=== PATIENT | male | born 1985 | race Caucasian/White ===

== ENCOUNTER 2017-03-03 03:35 | Emergency (ER) | payer SELFPAY ==
--- NOTE | 2017-03-03 05:08 | ED PDOC ---
HPI: General Adult Time Seen by Provider: 03/03/17 04:00 Chief Complaint (Nursing): Lower Extremity Problem/Injury History Per: Patient Additional Complaint(s): As per patient he drank 6 beers today and wanted a place to sleep. Pt. states he initially went to [facility] ED but he felt "offended" therefore he left and came here. Pt. offers no complaints and is requesting to leave later on in the morning. Denies leg pain contrary to triage note. Past Medical History Reviewed: Historical Data, Nursing Documentation, Vital Signs Vital Signs: Last Vital Signs Temp 97.6 F 03/03/17 03:46 Pulse 75 03/03/17 03:46 Resp 17 03/03/17 03:46 BP 111/60 03/03/17 03:46 Pulse Ox 96 03/03/17 03:46 - Family History Family History: States: No Known Family Hx - Immunization History Hx Tetanus Toxoid Vaccination: (UNKNOWN) Hx Influenza Vaccination: No Hx Pneumococcal Vaccination: No - Home Medications Home Medications: Ambulatory Orders Medication Instructions Recorded Naproxen [Naprosyn] 375 mg PO BID PRN #15 tab 02/27/15 traMADol [Ultram] 50 mg PO BID PRN #12 tab 02/27/15 Bacitracin OINT 1 applic TP BID #45 g 09/24/15 Cephalexin [Keflex] 500 mg PO Q6 #28 cap 09/24/15 - Allergies Allergies/Adverse Reactions: Allergies Allergy/AdvReac Type Severity Reaction Status Date / Time No Known Allergies Allergy Verified 09/22/13 11:52 Review of Systems ROS Statement: Except As Marked, All Systems Reviewed And Found Negative Physical Exam - Reviewed Nursing Documentation Reviewed: Yes Vital Signs Reviewed: Yes - Physical Exam Appears: Positive for: Well, Non-toxic, No Acute Distress Head Exam: Positive for: ATRAUMATIC, NORMAL INSPECTION, NORMOCEPHALIC Skin: Positive for: Normal Color, Warm. Negative for: Rash Eye Exam: Positive for: EOMI, Normal appearance, PERRL ENT: Positive for: Normal ENT Inspection Neck: Positive for: Normal, Painless ROM Cardiovascular/Chest: Positive for: Regular Rate, Rhythm Respiratory: Positive for: CNT, Normal Breath Sounds Gastrointestinal/Abdominal: Positive for: Normal Exam, Bowel Sounds, Soft. Negative for: Tenderness Back: Positive for: Normal Inspection Extremity: Positive for: Normal ROM Neurologic/Psych: Positive for: Alert, Oriented, Gait (steady, unassisted), Other (AOB; no slurred speech). Negative for: Aphasia, Facial Droop - ECG O2 Sat by Pulse Oximetry: 96 Disposition - Clinical Impression Clinical Impression: Alcohol intoxication - Patient ED Disposition Is Patient to be Admitted: No - Disposition Disposition: Routine/Home Disposition Time: 05:10 Condition: STABLE Instructions: Alcohol Intoxication (ED) Forms: [employer] ([place])
[2017-03-03 05:44] VITALS: BP 115/68; PULSE 80; RESP 18; TEMP 97.8; O2SAT 100
== END 2017-03-03 05:55 | disposition home or self-care (01) ==
LOC: H.ER 03:35
DX: F10.129 Alcohol abuse with intoxication, unspecified (principal); Y90.9 Presence of alcohol in blood, level not specified

== ENCOUNTER 2018-02-09 05:17 | Emergency (ER) | payer SELFPAY ==
[2018-02-09 05:36] VITALS: RESP 18
--- NOTE | 2018-02-09 06:00 | ED PDOC ---
HPI: Psych/Substance Abuse Time Seen by Provider: 02/09/18 05:43 Chief Complaint (Nursing): Alcohol Ingestion Chief Complaint (Provider): Alcohol Ingestion History Per: Patient, Other (police) History/Exam Limitations: no limitations Current Symptoms Are (Timing): Better Modifying Factor(s): Alcohol Additional Complaint(s): 32 year old male arrives to ED under custody of police department for a medical and psychiatric clearance for incarceration. Patient was arrested earlier tonight and admits to drinking around 2300 the night before. He offers no complaints at this time. He denies any SI or HI. Past Medical History Reviewed: Historical Data, Nursing Documentation, Vital Signs Vital Signs: Last Vital Signs Temp 97.6 F 02/09/18 05:31 Pulse 82 02/09/18 05:31 Resp 18 02/09/18 05:31 BP 149/82 02/09/18 05:31 Pulse Ox 98 02/09/18 05:31 - Medical History PMH: No Chronic Diseases - Surgical History Surgical History: Hernia Repair - Family History Family History: States: Unknown Family Hx - Social History Alcohol: > 2 Drinks/Day - Immunization History Hx Tetanus Toxoid Vaccination: (UNKNOWN) Hx Influenza Vaccination: No Hx Pneumococcal Vaccination: No - Home Medications Home Medications: Ambulatory Orders Medication Instructions Recorded Naproxen [Naprosyn] 375 mg PO BID PRN #15 tab 02/27/15 traMADol [Ultram] 50 mg PO BID PRN #12 tab 02/27/15 Bacitracin OINT 1 applic TP BID #45 g 09/24/15 Cephalexin [Keflex] 500 mg PO Q6 #28 cap 09/24/15 - Allergies Allergies/Adverse Reactions: Allergies Allergy/AdvReac Type Severity Reaction Status Date / Time No Known Allergies Allergy Verified 09/22/13 11:52 Review of Systems ROS Statement: Except As Marked, All Systems Reviewed And Found Negative Psych: Negative for: Suicidal ideation (or homicidal ideation) Physical Exam - Reviewed Nursing Documentation Reviewed: Yes Vital Signs Reviewed: Yes - Physical Exam Appears: Positive for: Well, Non-toxic, No Acute Distress Head Exam: Positive for: ATRAUMATIC, NORMAL INSPECTION, NORMOCEPHALIC Skin: Positive for: Normal Color Eye Exam: Positive for: Normal appearance ENT: Positive for: Normal ENT Inspection Neck: Positive for: Normal Cardiovascular/Chest: Positive for: Regular Rate, Rhythm Respiratory: Positive for: Normal Breath Sounds. Negative for: Wheezing, Respiratory Distress Gastrointestinal/Abdominal: Positive for: Normal Exam, Soft. Negative for: Tenderness Extremity: Positive for: Normal ROM (upper/lower) Neurologic/Psych: Positive for: Alert, Oriented, Gait (steady), Other (speaking full sentences). Negative for: Motor/Sensory Deficits - ECG O2 Sat by Pulse Oximetry: 98 (RA) Pulse Ox Interpretation: Normal Medical Decision Making Medical Decision Making: Initial Impression: Medical and psychiatric clearance for incarceration Initial Plan: --Patient is awake, alert, oriented x 3 and medically cleared with steady gait and clear speech. --Awaiting crisis evaluation. Scribe Attestation: Documented by Parul Jain, acting as a scribe for Bel Smith MD. Provider Scribe Attestation: All medical record entries made by the Scribe were at my direction and personally dictated by me. I have reviewed the chart and agree that the record accurately reflects my personal performance of the history, physical exam, medical decision making, and the department course for this patient. I have also personally directed, reviewed, and agree with the discharge instructions and disposition. Disposition - Clinical Impression Clinical Impression: Adjustment disorder - Patient ED Disposition Is Patient to be Admitted: No Doctor Will See Patient In The: Office Counseled Patient/Family Regarding: Studies Performed, Diagnosis, Need For Followup - Disposition Disposition: Discharged/Transfer to Law Enforcement Disposition Time: 06:24 Condition: GOOD Additional Instructions: Patient is medically and psychiatrically cleared for incarceration. Instructions: Adjustment Disorder
[2018-02-09 06:39] VITALS: BP 107/67; PULSE 62; TEMP 97.7; O2SAT 96
== END 2018-02-09 06:40 | disposition home or self-care (01) ==
LOC: H.ER 05:17
DX: F43.20 Adjustment disorder, unspecified (principal); Z00.8 Encounter for other general examination; Z02.89 Encounter for other administrative examinations